=== PATIENT | male | born 1955 ===

== ENCOUNTER 2018-04-04 06:02 | Day surgery (SDC) | payer OTHER ==
[2018-04-04 06:43] VITALS: O2SAT 100
[2018-04-04] MEDS ORDERED: Propofol 10 mg/ml Inj (20 ML) ONE (07:44)
[2018-04-04] MEDS ORDERED: Phenylephrine 10 mg/ml Inj ONE (07:58)
[2018-04-04 09:03] VITALS: TEMP 97.8
[2018-04-04 09:27] VITALS: BP 100/75
[2018-04-04 09:27] LABS: BLOOD UREA NITROGEN 14 mg/dL (9-20); CALCIUM 8.7 mg/dl (8.6-10.4); GFR AFRICAN-AMERICAN > 60; GFR NON-AFRICAN AMERICAN > 60
[2018-04-04 09:29] VITALS: PULSE 69; RESP 12
== END 2018-04-04 09:33 | disposition home or self-care (01) ==
LOC: C.ENDO 06:02
PROVIDERS: ATTEND Internal Medicine Gastroenterology
DX: K62.5 Hemorrhage of anus and rectum (principal); D12.5 Benign neoplasm of sigmoid colon; K92.9 Disease of digestive system, unspecified
CPT/HCPCS: 36415; 45380; 45385; 80048; 88305; J2001; J2370; J2704

== ENCOUNTER 2018-04-22 08:17 | Inpatient (IN) | payer OTHER ==
[2018-04-15 12:07] VITALS: BMI 29.0
[2018-04-22] MEDS ORDERED: Bupivacaine 0.25% 20 ML INJ IJ ONE (10:39)
[2018-04-22] MEDS ORDERED: cefOXitin IV 2 gm in Dextrose 0 GM/0 ML BAG IVPB ONE (10:40)
[2018-04-22] MEDS ORDERED: ceFAZolin IV 2 gm in Dextrose 2 GM/50 ML BAG IVPB ONE (10:40)
[2018-04-22] MEDS ORDERED: metroNIDAZOLE IV 500 mg/100 ml 500 MG/100 ML BAG ONE (10:40)
[2018-04-22] MEDS ORDERED: Lidocaine/Epinephrine 1% 1:100000 10 ML IJ ONE (10:40)
[2018-04-22] MEDS ORDERED: Midazolam 2 MG/2 ML VIAL ONE (10:48)
[2018-04-22] MEDS ORDERED: Propofol 10 mg/ml Inj (20 ML) ONE (10:48)
[2018-04-22] MEDS ORDERED: Rocuronium 10 mg/ml (5 ml) ONE ×2 (10:51→14:05)
[2018-04-22] MEDS ORDERED: Bupivacaine 0.5% Inj(30mL) INFIL ONE (11:04)
[2018-04-22] MEDS ORDERED: BUPIVACAINE 0.125%/0.9% NACL 600 ML IJ ONE (15:11)
[2018-04-22] MEDS ORDERED: HYDROmorphone 0.5 mg/0.5 ml ISec IVP PRN (15:18)
[2018-04-22] MEDS ORDERED: Neostigmine Methylsulfate 3mg/3ml Syringe IV ONE (15:27)
[2018-04-22] MEDS: Lactated Ringer's 1,000 ML IV SCH (16:00)
[2018-04-22] MEDS ORDERED: Lactated Ringer's 1,000 ML IV ONE (17:30)
[2018-04-22] MEDS ORDERED: Pneumococcal 23-Valent Vaccine IM ONE (23:58)
[2018-04-23] MEDS: HYDROmorphone 0.5 mg/0.5 ml ISec IVP PRN ×3 (02:09→19:02)
[2018-04-23] MEDS: Lactated Ringer's 1,000 ML IV SCH ×5 (02:13→19:03)
[2018-04-23 07:41] LABS: BASO % 0.2 % (0.0-2.0); EOS % 0.3 % (0.0-4.0); HEMOGLOBIN 9.8 g/dL (12.0-18.0); LYMPH # 0.7 K/uL (1.0-4.3); LYMPH % 8.5 % (20.0-40.0); MEAN CELL VOLUME 64.5 fL (80.0-94.0); MEAN CORPUSCULAR HGB CONC 32.6 g/dL (33.0-37.0); MEAN PLATELET VOLUME 8.3 fL (7.2-11.7); MONO # 0.5 K/uL (0.0-0.8); MONO % 5.9 % (0.0-10.0); NEUT # 7.3 K/uL (1.8-7.0); NEUT % 85.1 % (50.0-75.0); PLATELET COUNT 279 K/uL (130-400); RBC 4.66 Mil/uL (4.40-5.90); RED CELL DISTRIBUTION WIDTH 16.1 % (11.5-14.5)
[2018-04-23 07:46] LABS: WHITE BLOOD COUNT 8.6 K/uL (4.8-10.8)
[2018-04-23 07:56] LABS: BLOOD UREA NITROGEN 11 mg/dL (9-20); CALCIUM 8.2 mg/dl (8.6-10.4); GFR AFRICAN-AMERICAN > 60; GFR NON-AFRICAN AMERICAN > 60
--- NOTE | 2018-04-23 08:41 | PCM.SURG1 ---
Surgeon's Initial Post Op Note - Surgeon's Notes Surgeon: Dr. Hughes Rail Car Loader: Dr. Harry Dow PGY2 Type of Anesthesia: General Endo Pre-Operative Diagnosis: sigmoid mass Operative Findings: see operative report Post-Operative Diagnosis: same Operation Performed: robotic sigmoidectomy with transanal anastomosis Specimen/Specimens Removed: sigmoid colon Estimated Blood Loss: EBL {In ML}: 100 Blood Products Given: N/A Drains Used: [employer] Post-Op Condition: Good Date of Surgery/Procedure: 04/22/18 Time of Surgery/Procedure: 14:00
[2018-04-23 09:21] LABS: LYMPHOCYTE 9 % (20-40); MONOCYTE 3 % (0-10); NEUTROPHIL 88 % (50-75); PLATELET ESTIMATE NORMAL (NORMAL); TOTAL CELLS COUNTED 100
[2018-04-23 09:22] LABS: ANISOCYTOSIS SLIGHT; HYPOCHROMIC SLIGHT; MICROCYTOSIS SLIGHT; OVALOCYTES SLIGHT; POLYCHROMIC SLIGHT
[2018-04-23] MEDS: Enoxaparin 40 mg Syringe SC SCH ×2 (10:50→12:23)
--- NOTE | 2018-04-23 15:21 | CP.PCM.PN ---
<Alireza Mcdonald - Last Filed: 04/23/18 15:22> Subjective - Date & Time of Evaluation Date of Evaluation: 04/23/18 Time of Evaluation: 08:35 - Subjective Subjective: Patient seen and examined. No acute events over night. Denies nausea/vomiting. No flatus/BM. 1500cc/24 hrs church output. 50cc/24hr serosanguinous output from VIDYA drain. Objective - Vital Signs/Intake and Output Vital Signs (last 24 hours): Temp Pulse Resp BP Pulse Ox 97.8 F 90 21 112/65 98 04/23/18 07:00 04/23/18 07:00 04/23/18 07:00 04/23/18 07:00 04/23/18 07:00 Intake and Output: 04/23/18 04/23/18 06:59 18:59 Intake Total 1000 1000 Output Total 1020 1780 Balance -20 -780 - Medications Medications: Current Medications Enoxaparin Sodium (Lovenox) 40 mg SC DAILY [facility] Last Admin: 04/23/18 12:23 Dose: Not Given Hydromorphone HCl (Dilaudid) 0.5 mg IVP Q3H PRN PRN Reason: Pain, moderate (4-7) Last Admin: 04/23/18 10:49 Dose: 0.5 mg BUPIVACAINE 0.125%/0.9% NACL (Bupivacaine-Ns 0.125% On-Q Etymology Professor) 600 mls @ 4 mls/ hr IJ ONCE ONE Stop: 04/28/18 21:10 Lactated Ringer's (Lactated Ringer's) 1,000 mls @ 125 mls/hr IV .Q8H [facility] Last Admin: 04/23/18 12:14 Dose: 125 mls/hr Ondansetron HCl (Zofran Inj) 4 mg IVP Q6H PRN PRN Reason: nausea Pneumococcal Polyvalent Vaccine (Pneumovax 23 Vaccine) 0.5 ml IM .ONCE ONE Stop: 04/25/18 10:01 - Labs Labs: 04/23/18 07:26 04/23/18 07:26 - Constitutional Appears: No Acute Distress - Head Exam Head Exam: NORMOCEPHALIC - Eye Exam Eye Exam: EOMI, Normal appearance Pupil Exam: NORMAL ACCOMODATION - ENT Exam ENT Exam: Mucous Membranes Moist - Respiratory Exam Respiratory Exam: NORMAL BREATHING PATTERN - Cardiovascular Exam Cardiovascular Exam: REGULAR RHYTHM, +S1, +S2 - Neurological Exam Neurological Exam: Alert, Awake, Oriented x3 - Psychiatric Exam Psychiatric exam: Normal Mood - Skin Skin Exam: Dry, Intact, Warm Assessment and Plan - Assessment and Plan (Free Text) Assessment: 63M s/p robotic sigmoidectomy POD1 Plan: NPO IVF Analgesic prn Anti-emetic prn D/C church Strict I&O's Out of bed to chair DVT ppx Encourage incentive spirometer use Monitor bowel function D/w Dr. Ellen Pulido PGY3 <Bradford Hughes - Last Filed: 04/25/18 15:21> Objective - Vital Signs/Intake and Output Vital Signs (last 24 hours): Temp Pulse Resp BP Pulse Ox 98.4 F 90 21 129/71 97 04/25/18 07:00 04/25/18 07:00 04/25/18 07:00 04/25/18 07:00 04/25/18 07:00 Intake and Output: 04/25/18 04/25/18 06:59 18:59 Intake Total 2200 480 Output Total 1231 15 Balance 969 465 - Medications Medications: Current Medications Enoxaparin Sodium (Lovenox) 40 mg SC DAILY [facility] Last Admin: 04/25/18 10:18 Dose: Not Given BUPIVACAINE 0.125%/0.9% NACL (Bupivacaine-Ns 0.125% On-Q Etymology Professor) 600 mls @ 4 mls/ hr IJ ONCE ONE Stop: 04/28/18 21:10 Ondansetron HCl (Zofran Inj) 4 mg IVP Q6H PRN PRN Reason: nausea Oxycodone/Acetaminophen (Percocet 5/325 Mg Tab) 1 tab PO Q4H PRN PRN Reason: Pain, moderate (4-7) Stop: 04/28/18 08:01 Last Admin: 04/25/18 14:17 Dose: 1 tab - Labs Labs: 04/25/18 07:49 04/25/18 07:49 Attending/Attestation - Attestation I have personally seen and examined this patient.: Yes I have fully participated in the care of the patient.: Yes I have reviewed all pertinent clinical information, including history, physical exam and plan: Yes Notes (Text): Pt was seen and examined at bedside Agree with above note and assessment Pt is improving clinically Replace Potassium OOB to walk DVT prophylaxis Plan d.w pt in detail
[2018-04-24] MEDS: Lactated Ringer's 1,000 ML IV SCH ×2 (03:00)
[2018-04-24] MEDS ORDERED: Potassium Ch 20mEq in D5-1/2NS 1,000 ML IV SCH (06:00)
--- NOTE | 2018-04-24 08:50 | CP.PCM.PN ---
<Tadeo Guzman - Last Filed: 04/24/18 08:47> Subjective - Date & Time of Evaluation Date of Evaluation: 04/24/18 Time of Evaluation: 08:47 - Subjective Subjective: General Surgery Progress note for Dr. Hughes This 63M was seen and evaluated this Am at bedside. No acute events overnight. He reports pain is well controlled. He is requesting diet this AM. Patient denies any nausea or vomiting, denies flatus or BM. Dressings are clean dry and intact. Objective - Vital Signs/Intake and Output Vital Signs (last 24 hours): Temp Pulse Resp BP Pulse Ox 98.3 F 104 H 20 116/71 96 04/24/18 05:30 04/23/18 23:29 04/23/18 23:29 04/23/18 23:29 04/23/18 23:29 Intake and Output: 04/24/18 04/24/18 06:59 18:59 Intake Total 800 1000 Output Total 265 800 Balance 535 200 - Medications Medications: Current Medications Enoxaparin Sodium (Lovenox) 40 mg SC DAILY [facility] Last Admin: 04/23/18 12:23 Dose: Not Given Hydromorphone HCl (Dilaudid) 0.5 mg IVP Q3H PRN PRN Reason: Pain, moderate (4-7) Last Admin: 04/23/18 19:02 Dose: 0.5 mg BUPIVACAINE 0.125%/0.9% NACL (Bupivacaine-Ns 0.125% On-Q Private Equity Associate) 600 mls @ 4 mls/ hr IJ ONCE ONE Stop: 04/28/18 21:10 Potassium Chloride/Dextrose/Sod Cl (Potassium Chl 20 Meq In D5-1/2ns) 1,000 mls @ 100 mls/hr IV .Q10H [facility] Last Admin: 04/24/18 07:00 Dose: 100 mls/hr Ondansetron HCl (Zofran Inj) 4 mg IVP Q6H PRN PRN Reason: nausea Pneumococcal Polyvalent Vaccine (Pneumovax 23 Vaccine) 0.5 ml IM .ONCE ONE Stop: 04/25/18 10:01 - Labs Labs: 04/23/18 07:26 04/23/18 07:26 - Constitutional Appears: Non-toxic, No Acute Distress - Head Exam Head Exam: ATRAUMATIC, NORMOCEPHALIC - Eye Exam Eye Exam: EOMI, Normal appearance - ENT Exam ENT Exam: Mucous Membranes Moist - Respiratory Exam Respiratory Exam: NORMAL BREATHING PATTERN - Cardiovascular Exam Cardiovascular Exam: +S1, +S2 - GI/Abdominal Exam GI & Abdominal Exam: Soft. absent: Distended, Firm, Guarding, Rigid, Tenderness Additional comments: Dressings clean dry and intact - Neurological Exam Neurological Exam: Alert, Awake - Psychiatric Exam Psychiatric exam: Normal Affect, Normal Mood - Skin Skin Exam: Dry, Intact Assessment and Plan - Assessment and Plan (Free Text) Assessment: 63M POD2 s/p robotic sigmoidectomy Plan: Full liquid diet IVF Analgesic prn Anti-emetic prn Strict I&O's Encourage ambulation DVT ppx Encourage incentive spirometer use Monitor bowel function D/w Dr. Ellen Guzman PGY2 <Bradford Hughes - Last Filed: 04/25/18 15:26> Objective - Vital Signs/Intake and Output Vital Signs (last 24 hours): Temp Pulse Resp BP Pulse Ox 98.4 F 90 21 129/71 97 04/25/18 07:00 04/25/18 07:00 04/25/18 07:00 04/25/18 07:00 04/25/18 07:00 Intake and Output: 04/25/18 04/25/18 06:59 18:59 Intake Total 2200 480 Output Total 1231 15 Balance 969 465 - Medications Medications: Current Medications Enoxaparin Sodium (Lovenox) 40 mg SC DAILY [facility] Last Admin: 04/25/18 10:18 Dose: Not Given BUPIVACAINE 0.125%/0.9% NACL (Bupivacaine-Ns 0.125% On-Q Private Equity Associate) 600 mls @ 4 mls/ hr IJ ONCE ONE Stop: 04/28/18 21:10 Ondansetron HCl (Zofran Inj) 4 mg IVP Q6H PRN PRN Reason: nausea Oxycodone/Acetaminophen (Percocet 5/325 Mg Tab) 1 tab PO Q4H PRN PRN Reason: Pain, moderate (4-7) Stop: 04/28/18 08:01 Last Admin: 04/25/18 14:17 Dose: 1 tab - Labs Labs: 04/25/18 07:49 04/25/18 07:49 Attending/Attestation - Attestation I have fully participated in the care of the patient.: Yes I have reviewed all pertinent clinical information, including history, physical exam and plan: Yes Notes (Text): Pt is improving clinically Passin gas Tolerating liquid diet DC antibiotics DVT prophylaxis Plan d.w pt in detail
[2018-04-24 09:13] LABS: BASO % 0.1 % (0.0-2.0); EOS % 0.3 % (0.0-4.0); HEMOGLOBIN 9.7 g/dL (12.0-18.0); LYMPH # 1.2 K/uL (1.0-4.3); LYMPH % 12.9 % (20.0-40.0); MEAN CELL VOLUME 64.4 fL (80.0-94.0); MEAN CORPUSCULAR HEMOGLOBIN 20.7 pg (27.0-31.0); MEAN CORPUSCULAR HGB CONC 32.1 g/dL (33.0-37.0); MEAN PLATELET VOLUME 7.9 fL (7.2-11.7); MONO # 0.5 K/uL (0.0-0.8); MONO % 5.7 % (0.0-10.0); NEUT # 7.5 K/uL (1.8-7.0); RBC 4.7 Mil/uL (4.40-5.90); WHITE BLOOD COUNT 9.3 K/uL (4.8-10.8)
[2018-04-24 09:31] LABS: BLOOD UREA NITROGEN 11 mg/dL (9-20); GFR AFRICAN-AMERICAN > 60; GFR NON-AFRICAN AMERICAN > 60
[2018-04-24] MEDS: Enoxaparin 40 mg Syringe SC SCH (10:15)
[2018-04-24] MEDS: HYDROmorphone 0.5 mg/0.5 ml ISec IVP PRN (10:15)
--- NOTE | 2018-04-25 07:38 | CP.PCM.PN ---
Subjective - Date & Time of Evaluation Date of Evaluation: 04/25/18 Time of Evaluation: 06:10 - Subjective Subjective: Patient seen and examined. No acute events over night. Patient reports having two BMs over night. Passing flatus. Tolerating full liquid diet. Objective - Vital Signs/Intake and Output Vital Signs (last 24 hours): Temp Pulse Resp BP Pulse Ox 98.5 F 102 H 20 126/75 96 04/25/18 05:30 04/24/18 23:21 04/24/18 23:21 04/24/18 23:21 04/24/18 23:21 Intake and Output: 04/25/18 04/25/18 06:59 18:59 Intake Total 2200 Output Total 1230 Balance 970 - Medications Medications: Current Medications Enoxaparin Sodium (Lovenox) 40 mg SC DAILY [facility] Last Admin: 04/24/18 10:15 Dose: Not Given BUPIVACAINE 0.125%/0.9% NACL (Bupivacaine-Ns 0.125% On-Q Healthcare Consultant) 600 mls @ 4 mls/ hr IJ ONCE ONE Stop: 04/28/18 21:10 Ondansetron HCl (Zofran Inj) 4 mg IVP Q6H PRN PRN Reason: nausea Oxycodone/Acetaminophen (Percocet 5/325 Mg Tab) 1 tab PO Q4H PRN PRN Reason: Pain, moderate (4-7) Stop: 04/28/18 07:37 Pneumococcal Polyvalent Vaccine (Pneumovax 23 Vaccine) 0.5 ml IM .ONCE ONE Stop: 04/25/18 10:01 - Labs Labs: 04/24/18 08:55 04/24/18 08:55 - Constitutional Appears: No Acute Distress - Head Exam Head Exam: NORMOCEPHALIC - Eye Exam Eye Exam: Normal appearance - ENT Exam ENT Exam: Mucous Membranes Moist - Respiratory Exam Respiratory Exam: NORMAL BREATHING PATTERN - Cardiovascular Exam Cardiovascular Exam: +S1, +S2 - GI/Abdominal Exam GI & Abdominal Exam: Soft Additional comments: On Q pump catheters in place - Neurological Exam Neurological Exam: Alert, Awake, Oriented x3 - Psychiatric Exam Psychiatric exam: Normal Mood - Skin Skin Exam: Dry, Intact, Warm Assessment and Plan - Assessment and Plan (Free Text) Assessment: 63M s/p robotic sigmoidectomy POD1 Plan: FLD ADAT Analgesic prn Anti-emetic prn Out of bed to chair DVT ppx Encourage incentive spirometer use and ambulation Monitor bowel function D/w Dr. Ellen Pulido PGY3
[2018-04-25 08:27] LABS: HEMOGLOBIN 9.6 g/dL (12.0-18.0); MEAN CELL VOLUME 64.2 fL (80.0-94.0); MEAN CORPUSCULAR HEMOGLOBIN 20.6 pg (27.0-31.0); MEAN CORPUSCULAR HGB CONC 32.1 g/dL (33.0-37.0); MEAN PLATELET VOLUME 7.9 fL (7.2-11.7); RBC 4.65 Mil/uL (4.40-5.90); RED CELL DISTRIBUTION WIDTH 16.4 % (11.5-14.5); WHITE BLOOD COUNT 7.3 K/uL (4.8-10.8)
[2018-04-25 09:00] LABS: BLOOD UREA NITROGEN 8 mg/dL (9-20); CALCIUM 8.3 mg/dl (8.6-10.4); GFR AFRICAN-AMERICAN > 60; GFR NON-AFRICAN AMERICAN > 60
[2018-04-25] MEDS: Oxycodone/Acetaminophen 5/325 mg Tab PO PRN ×2 (09:35→14:17)
[2018-04-25] MEDS ORDERED: Pneumococcal 23-Valent Vaccine IM ONE (10:00)
[2018-04-25] MEDS: Enoxaparin 40 mg Syringe SC SCH (10:18)
[2018-04-25 16:57] VITALS: RESP 20
--- NOTE | 2018-04-26 06:51 | OP ---
PROCEDURE DATE: 04/22/2018 PREOPERATIVE DIAGNOSES: 1. 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 2. Lower gastrointestinal bleed. POSTOPERATIVE DIAGNOSES: 1. 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 2. Lower gastrointestinal bleed. PROCEDURE DONE: 1. Robotic rectal resection with partial sigmoidectomy. 2. Robotic Mobilization of sigmoid colon 3. Bilateral On-Q pain catheter pump placement. SURGEON: Bradford Hughes MD FELTER TENNIS BALLS: Alireza Mcdonald, PGY-2 resident and THEO Bell. TYPE OF ANESTHESIA: General endotracheal tube anesthesia. ESTIMATED BLOOD LOSS: Around 100 mL. DRAINS: None. PATHOLOGY: The proximal rectum with rectosigmoid mass with distal sigmoid were sent for the pathology. COMPLICATIONS: None. INTRAOPERATIVE FINDINGS: The patient had tumor at the rectosigmoid junction and proximal rectal resection was done as well as distal sigmoid was also resected 5 cm proximal to the rectosigmoid junction. DESCRIPTION OF PROCEDURE: On intraoperative steps, this is a 65-year-old male who was diagnosed with rectosigmoid junction adenocarcinoma of the colon, and the patient was consented for the robotic sigmoidectomy, possible LAR, brought to the OR, placed him on the operating room table. After induction of the anesthesia, the abdomen was prepped and draped in the usual sterile fashion. Using the Visiport technique, the peritoneal cavity was entered, and pneumo was created. Another 4/8 mm port was placed in the upper abdomen as well as 12-mm port was placed in the left lower quadrant. After that, robot was brought in. Camera arm as well as arm 1 and arm 2 were docked, and the sigmoid colon was mobilized. The patient was found to have a tumor at rectosigmoid junction and now the rectum was also mobilized on the right as well as the left side of the pelvis, and the left ureter as well as the right ureter was identified. The total mesorectal excision was done, and the proximal rectum was resected, and the dissection was carried down superiorly. The distal sigmoid colon was also resected 5 cm from the origin of the tumor and the mesocolon was resected with vessel sealer. Proper hemostasis was done. Now, a very small incision was made in the lower abdomen to brought out the specimen and brought out the end of the sigmoid to put the Endo. An end-to-end anastomosis was done by EEAshlee. Intraoperative anastomosis was checked with Firefly before and after anastomosis for good blood supply. Intraoperative leak test was done, and there was no leak identified. After that, a bilateral On-Q pain catheter pump was placed and pain catheter was connected to the bulbs, and a 19-Faroese Zachery drain was placed, and the peritoneal wound was closed in a 2-layer fascia and the peritoneum with #1 looped PDS in continuous fashion as well as 0 Prolene for the suture. Skin with 4-0 Monocryl, and dry sterile dressing was applied. All the port sites were also closed with 2-0 Vicryl and 4-0 Monocryl. The patient was extubated in OR, sent to the postanesthesia care unit in stable condition. Bradford Hughes MD ROD
[2018-04-26] MEDS: Oxycodone/Acetaminophen 5/325 mg Tab PO PRN (07:02)
[2018-04-26 08:28] VITALS: BP 117/77; PULSE 87; TEMP 98.3; O2SAT 96
[2018-04-26 08:38] LABS: HEMOGLOBIN 9.7 g/dL (12.0-18.0); MEAN CELL VOLUME 64.3 fL (80.0-94.0); MEAN CORPUSCULAR HEMOGLOBIN 20.8 pg (27.0-31.0); MEAN CORPUSCULAR HGB CONC 32.4 g/dL (33.0-37.0); RBC 4.65 Mil/uL (4.40-5.90); RED CELL DISTRIBUTION WIDTH 16.5 % (11.5-14.5); WHITE BLOOD COUNT 5.7 K/uL (4.8-10.8)
[2018-04-26 08:55] LABS: BLOOD UREA NITROGEN 13 mg/dL (9-20); CALCIUM 8.5 mg/dl (8.6-10.4); GFR AFRICAN-AMERICAN > 60; GFR NON-AFRICAN AMERICAN > 60
--- NOTE | 2018-04-26 09:09 | CP.PCM.DIS ---
Provider - Provider Date of Admission: 04/24/18 08:46 Attending physician: Bradford Hughes MD Time Spent in preparation of Discharge (in minutes): 30 Hospital Course - Lab Results Lab Results: Most Recent Lab Values WBC 5.7 K/uL (4.8-10.8) 04/26/18 08:17 RBC 4.65 Mil/uL (4.40-5.90) 04/26/18 08:17 Hgb 9.7 g/dL (12.0-18.0) L 04/26/18 08:17 Hct 29.9 % (35.0-51.0) L 04/26/18 08:17 MCV 64.3 fL (80.0-94.0) L 04/26/18 08:17 MCH 20.8 pg (27.0-31.0) L 04/26/18 08:17 MCHC 32.4 g/dL (33.0-37.0) L 04/26/18 08:17 RDW 16.5 % (11.5-14.5) H 04/26/18 08:17 Plt Count 265 K/uL (130-400) 04/26/18 08:17 MPV 8.0 fL (7.2-11.7) 04/26/18 08:17 Neut % (Auto) 81.0 % (50.0-75.0) H 04/24/18 08:55 Lymph % (Auto) 12.9 % (20.0-40.0) L 04/24/18 08:55 Cassia % (Auto) 5.7 % (0.0-10.0) 04/24/18 08:55 Eos % (Auto) 0.3 % (0.0-4.0) 04/24/18 08:55 Baso % (Auto) 0.1 % (0.0-2.0) 04/24/18 08:55 Neut # (Auto) 7.5 K/uL (1.8-7.0) H 04/24/18 08:55 Lymph # (Auto) 1.2 K/uL (1.0-4.3) 04/24/18 08:55 Cassia # (Auto) 0.5 K/uL (0.0-0.8) 04/24/18 08:55 Eos # (Auto) 0.0 K/uL (0.0-0.7) 04/24/18 08:55 Baso # (Auto) 0.0 K/uL (0.0-0.2) 04/24/18 08:55 Neutrophils % (Manual) 88 % (50-75) H 04/23/18 07:26 Lymphocytes % (Manual) 9 % (20-40) L 04/23/18 07:26 Monocytes % (Manual) 3 % (0-10) 04/23/18 07:26 Platelet Estimate Normal (NORMAL) 04/23/18 07:26 Polychromasia Slight 04/23/18 07:26 Hypochromasia (manual) Slight 04/23/18 07:26 Anisocytosis (manual) Slight 04/23/18 07:26 Microcytosis (manual) Slight 04/23/18 07:26 Ovalocytes Slight 04/23/18 07:26 Sodium 142 mmol/L (132-148) 04/26/18 08:17 Potassium 3.4 mmol/L (3.6-5.2) L 04/26/18 08:17 Chloride 102 mmol/L (98-107) 04/26/18 08:17 Carbon Dioxide 29 mmol/L (22-30) 04/26/18 08:17 Anion Gap 15 (10-20) 04/26/18 08:17 BUN 13 mg/dL (9-20) 04/26/18 08:17 Creatinine 0.7 mg/dL (0.8-1.5) L 04/26/18 08:17 Est GFR ( Amer) > 60 04/26/18 08:17 Est GFR (Non-Af Amer) > 60 04/26/18 08:17 Random Glucose 104 mg/dL (75-110) 04/26/18 08:17 Calcium 8.5 mg/dl (8.6-10.4) L 04/26/18 08:17 Phosphorus 3.9 mg/dL (2.5-4.5) 04/26/18 08:17 Magnesium 1.9 mg/dL (1.6-2.3) 04/26/18 08:17 Blood Type O POSITIVE 04/22/18 09:00 Antibody Screen Negative 04/22/18 09:00 - Hospital Course Hospital Course: On Mr. Sutherland came to [facility] for an elective robotic sigmoidectomy with transanal anastamosis for a sigmoid mass performed by Dr. Hughes. VIDYA drain and onQ were placed. Patient tolerated the procedure and taken to PACU. On post operative day 1 patient's pain was controlled. We advanced his diet as tolerated. On 04/25/18 patient moved his bowels and began passing flatus. On we removed his VIDYA drain and onQ. Pathology pending. Above is a brief summary of the patient's hospital stay. For further details please refer to medical records. Discharge Exam - Head Exam Head Exam: ATRAUMATIC, NORMAL INSPECTION, NORMOCEPHALIC - Eye Exam Eye Exam: EOMI, Normal appearance - ENT Exam ENT Exam: Mucous Membranes Moist, Normal Exam - Neck Exam Neck exam: Full Rom, Normal Inspection - Respiratory Exam Respiratory Exam: NORMAL BREATHING PATTERN, UNREMARKABLE - Cardiovascular Exam Cardiovascular Exam: REGULAR RHYTHM, +S1, +S2 - GI/Abdominal Exam GI & Abdominal Exam: Normal Bowel Sounds, Soft, Unremarkable. absent: Distended , Firm, Guarding, Rebound, Rigid, Tenderness Additional comments: Dressing c/d/i - Extremities Exam Extremities exam: normal capillary refill, normal inspection - Neurological Exam Neurological exam: Alert, Normal Gait, Oriented x3 - Psychiatric Exam Psychiatric exam: Normal Affect, Normal Mood - Skin Skin Exam: Dry, Intact, Normal Color, Warm Discharge Plan - Discharge Medications Prescriptions: Acetaminophen [Tylenol 325mg tab] 650 mg PO Q6 PRN 5 Days #20 tab PRN Reason: Pain, Mild (1-3) Ibuprofen [Advil] 600 mg PO Q6 PRN 5 Days #20 tablet PRN Reason: Pain, Mild (1-3) - Follow Up Plan Condition: GOOD Disposition: HOME/ ROUTINE Patient education suggested?: No Additional Instructions: Do not remove dressings. Do not remove steristrips they will come off on their own. Do not shower until further instructions given by Dr. Hughes at your follow up appointment. No heavy lifting for the next 4-6 weeks greater than 20 pounds. Please follow up at Dr. Hughes's office in 1-2 weeks. Please do not take medicine on an empty stomach because this can cause GI upset. For further questions please call Dr. Hughes's office. In case of fever please return to the ED.
[2018-04-26] MEDS: Enoxaparin 40 mg Syringe SC SCH (11:15)
[2018-04-26] MEDS ORDERED: Potassium Chloride 20 mEq ER Tab PO ONE (11:15)
== END 2018-04-26 11:30 | disposition home or self-care (01) | DRG 330 ==
LOC: INTOOBSV 08:17 → C.9S 08:17 → C.3T 17:50 → OBSVTOIN 04-24 08:46
PROVIDERS: ADMIT Surgery Surgical Critical Care; ATTEND Surgery Surgical Critical Care
PROC: 0DTN4ZZ Resection of Sigmoid Colon, Percutaneous Endoscopic Approach (ICD-10-PCS; principal; 2018-04-24)
PROC: 0DTP4ZZ Resection of Rectum, Percutaneous Endoscopic Approach (ICD-10-PCS; 2018-04-24)
PROC: 0W9F40Z Drainage of Abdominal Wall with Drainage Device, Percutaneous Endoscopic Approach (ICD-10-PCS; 2018-04-24)
PROC: 8E0W4CZ Robotic Assisted Procedure of Trunk Region, Percutaneous Endoscopic Approach (ICD-10-PCS; 2018-04-24)
DX: C19 Malignant neoplasm of rectosigmoid junction (principal); K92.2 Gastrointestinal hemorrhage, unspecified